=== PATIENT | male | born 1950 | race Caucasian/White ===

== ENCOUNTER 2016-05-19 10:10 | Outpatient (CLI) | payer OTHER ==
--- NOTE | 2016-05-19 16:28 | DIAGNOSTIC IMAGING REPORT ---
PROCEDURE: XR MAJOR JT INJ OR ASPIRATION INDICATION: PRIMARY OSTEOARTHRITIS OF LEFT HIP TECHNIQUE: Written informed consent was obtained from the patient prior to the procedure. Risks discussed included but were not limited to bleeding, infection, injury to adjacent structures, pain, temporary lower limb anesthesia and immobility, and allergic reaction. It was agreed to proceed. Supine position with the patient's left hip slightly flexed as needed for comfort. Preliminary fluoroscopic imaging demonstrated moderate osteoarthritic changes with acetabular over coverage and femoral head spurs. An appropriate skin entry site was chosen and marked. The skin was prepped and draped in the usual sterile fashion. Skin and subcutaneous tissue was anesthetized thoroughly with 1% lidocaine. Under intermittent fluoroscopic guidance, a 22 gauge needle was directed into the left femoral acetabular joint. Intra-articular position was assessed with a small injection of Isovue 200. Initially, the inferior joint recess filled, however after joint filling was completed, an extra-articular injection was suspected given appearance of extra-articular structures. A single spot fluoroscopic image was acquired documenting the needle in position in the expected location of the intra-articular injection, although extra-articular structures are opacified, suspicious for extra-articular injection. Total fluoro time 1.0 minutes. Cumulative dose 489.89 mGy The needle was removed, hemostasis was achieved, the skin was cleansed, and a sterile bandage was applied. The patient was helped off the table. The patient left the radiology department in stable condition with standard post procedure instructions. COMPARISON: None. FINDINGS: Moderate arthritic changes including acetabular over coverage and femoral head spurring. Post injection imaging suspicious for extra-articular injection. IMPRESSION: 1. Left femoral acetabular joint injection under fluoroscopy with suspected extra-articular injection. If there is no clinical improvement in symptoms, re-injection with alternative joint approach is recommended. 2. Acetabular over coverage and minor spurring of the femoral head. 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
== END 2016-05-19 23:00 ==
LOC: XR SRH 10:10
PROC: 3E0U33Z Introduction of Anti-inflammatory into Joints, Percutaneous Approach (ICD-10-PCS; principal; 2016-05-19)
DX: M16.12 Unilateral primary osteoarthritis, left hip (principal)
CPT/HCPCS: 82445